=== PATIENT | female | born 1985 ===

== ENCOUNTER 2024-04-13 08:01 | Inpatient (IN) | payer OTHER ==
[~2024-04-13] VITALS: Ht 160 cm; Wt 88.0 kg
[2024-04-13] MEDS ORDERED: SYNTHROID150 MCG (08:58)
[2024-04-13] MEDS ORDERED: ZESTRIL10 M1 (08:59)
[2024-04-13 09:51] LABS: RH POSITIVE
[2024-04-18] MEDS ORDERED: POVIDONE-IODINE 118 ML BOTT TOP ONE (09:15)
[2024-04-18] MEDS ORDERED: CEFAZOLIN SODIUM 1,000 MG VIAL IV SCH ×2 (09:15→12:00)
[2024-04-18] MEDS ORDERED: RINGERS SOLUTION,LACTATED 1,000 ML IV SCH (10:45)
[2024-04-18] MEDS ORDERED: MORPHINE SULFATE 4 MG,MORPHINE SULFATE 2 MG IV PRN (10:45)
[2024-04-18] MEDS ORDERED: ONDANSETRON HCL 2 MG/ML VIAL IV PRN (10:45)
[2024-04-18] MEDS ORDERED: MORPHINE SULFATE 4 MG/ML VIAL IV ONE ×2 (11:40→14:15)
[2024-04-18] MEDS ORDERED: HEMOSTATIC MATRIX 1 KIT KIT TOP ONE (13:15)
[2024-04-18] MEDS ORDERED: SURGIFLO APPLICATOR 1 EACH APPL TOP ONE (13:15)
[2024-04-18 14:21] LABS: HEMATOCRIT 37.5 % (36.0-45.00); HEMOGLOBIN 11.9 g/dL (12.0-15.00); MEAN CELL VOLUME 80.7 fL (80.00-100.00); MEAN CORPUSCULAR HEMOGLOBIN 25.6 pg (27.00-32.0); MEAN CORPUSCULAR HGB CONC 31.7 g/dl (32.0-36.0); PLATELET COUNT 288 K/uL (150-450); RED BLOOD COUNT 4.64 M/uL (4.00-6.00); RED CELL DISTRIBUTION WIDTH 14.6 % (11.5-14.5)
[2024-04-18 14:42] VITALS: BP 110/51; O2SAT 97
[2024-04-18 17:47] VITALS: BP 118/67
[2024-04-19 01:21] VITALS: BP 118/79
[2024-04-19] MEDS ORDERED: IBU800 MG PO (07:39)
[2024-04-19] MEDS ORDERED: NEURONTIN300 MG PO (07:40)
[2024-04-19 08:11] VITALS: BP 106/68
[2024-04-19] MEDS ORDERED: LISINOPRIL 10 MG TABLET PO SCH (09:00)
[2024-04-19] MEDS ORDERED: ENOXAPARIN SODIUM 40 MG/0.4 ML SYRINGE SUBCUTANEO SCH (09:00)
== END 2024-04-19 09:16 | disposition home or self-care (01) | DRG 743 ==
LOC: O/R 04-18 06:00 → SURH 04-18 08:30 → OB/GYN 04-18 14:37
PROVIDERS: ADMIT Obstetrics & Gynecology Gynecology; ATTEND Obstetrics & Gynecology Gynecology
PROC: 0UT74ZZ Resection of Bilateral Fallopian Tubes, Percutaneous Endoscopic Approach (ICD-10-PCS; 2024-04-18)
PROC: 0UT94ZZ Resection of Uterus, Percutaneous Endoscopic Approach (ICD-10-PCS; principal; 2024-04-18 08:30)
DX: D25.2 Subserosal leiomyoma of uterus (principal); N80.03 Adenomyosis of the uterus; N80.329 Endometriosis of the posterior cul-de-sac, unspecified depth; N80.202 Endometriosis of left fallopian tube, unspecified depth; N92.1 Excessive and frequent menstruation with irregular cycle; D25.1 Intramural leiomyoma of uterus